=== PATIENT | female | born 1960 | race Caucasian/White ===

== ENCOUNTER 2018-01-16 15:20 | Outpatient (CLI) | payer BC | END 2018-01-16 15:21 | disposition home or self-care (01) | LOC: BICRAD 15:20 | PROVIDERS: ATTEND Chiropractor | DX: M25.561 Pain in right knee (principal); G89.29 Other chronic pain; M17.11 Unilateral primary osteoarthritis, right knee ==

== ENCOUNTER 2019-03-12 05:00 | Emergency (ER) | payer BC ==
[2019-03-12 05:45] LABS: #Basophils 0.1 thou/uL (0.0-0.2); #Eosinphils 0.2 thou/uL (0.0-0.7); #Lymphocytes 1.9 thou/uL (1.20-3.40); #Monocytes 0.7 thou/uL (0.11-0.59); #Neutrophils 6.8 thou/uL (1.40-6.50); %Eosinophils 2.3 % (0.0-10.0); %Lymphocytes 19.4 % (21.0-51.0); %Monocytes 7.6 % (0.0-10.0); %Neutrophils 69.7 % (42.0-75.0); Hemoglobin 14.7 g/dL (12.0-16.0); Mean Corpuscular HGB CONC 33.6 g/dL (32.0-36.0); Mean Corpuscular Hemoglobin 31.6 pg (27.0-31.0); Platelet Count 234 thou/uL (130-400); RBC Distribution Width 12.7 % (11.5-14.5); Red Blood Cell (RBC) Count 4.64 mill/uL (4.20-5.40); White Blood Cell (WBC) Count 9.7 thou/uL (4.8-10.8)
[2019-03-12 06:04] LABS: ALT (SGPT) 9 U/L (8-55); AST (SGOT) 12 U/L (5-34); Albumin 4.4 g/dL (3.5-5.0); Alkaline Phosphatase 93 U/L (40-150); Anion Gap 15 mmol/L (10-20); BUN (Urea Nitrogen) 7 mg/dL (9.8-20.1); Bilirubin, Total 0.7 mg/dL (0.2-1.2); Calc. Creatinine Clearance 0 mL/min (70-130); Calcium 9.9 mg/dL (7.8-10.44); Carbon Dioxide 25 mmol/L (22-29); Chloride 99 mmol/L (98-107); Estimated GFR-MDRD 65; Glucose 133 mg/dL (70-105); Potassium 3.2 mmol/L (3.5-5.1); Protein, Total 7.4 g/dL (6.0-8.3); Sodium 136 mmol/L (136-145)
[2019-03-12] MEDS ORDERED: Ondansetron PF 4 MG/2 ML Vial ONE (07:23)
[2019-03-12] MEDS ORDERED: Ketorolac Tromethamine 30 MG/ML VIAL ONE (07:23)
[2019-03-12 07:41] LABS: Bilirubin Negative (Negative); Blood, Urine Negative (Negative); Clarity CLEAR (Clear); Glucose, Urine (Dipstick) Negative (Negative); Leukocyte Small (Negative); Nitrite Negative (Negative); Protein, Urine (Dipstick) Negative (Neg-Trace); Specific Gravity, Urine 1.014 (1.002-1.036); Urobilinogen 0.2 mg/dL (0.2-1.0); pH, Urine 5.5 (5.0-9.0)
[2019-03-12 07:46] LABS: Bacteria/HPF None Seen HPF (None Seen); Hyaline Casts/LPF 4-6 HYALINE CAST LPF (0-3 Hyaline); Pathc Cast-AUWi Flag 0.81 (0-2.49); Squamous Epithelial 0-3 HPF (0-3)
--- NOTE | 2019-03-12 07:59 | CT ---
EXAM: Abdomen and pelvic CT scan without contrast: HISTORY: Pain COMPARISON: None FINDINGS: Exam is limited in sensitivity due to the absence of IV or enteric contrast. Mild atelectasis Liver: Hepatic steatosis Gallbladder: Surgically absent Pancreas: No inflammation Spleen: Unremarkable. Adrenal glands: No mass Kidneys: No renal calculus or acute obstruction. Bowel: Limited without IV or enteric contrast. There is slight inflammation of the pelvis adjacent th e sigmoid colon which contains colonic diverticula. Urinary Bladder: The urinary bladder is unremarkable. Adenopathy: No adenopathy within the abdomen or pelvis. Free Air: No free air. Ascites: No ascites. Osseous structures: No acute osseous abnormalities. IMPRESSION: Mild localized inflammation of the pelvis which is adjacent to sigmoid colon, containing diverticula. Bowel is incompletely assessed without IV or enteric contrast. Correlate for evidence of acute diverticulitis. Exam is otherwise limited by noncontrast technique.
== END 2019-03-12 08:29 | disposition home or self-care (01) ==
LOC: ERS 05:00
DX: K57.32 Diverticulitis of large intestine without perforation or abscess without bleeding (principal); I10 Essential (primary) hypertension; F32.9 Major depressive disorder, single episode, unspecified
CPT/HCPCS: 36415; 74176; 80053; 81003; 81015; 83690; 85025; 96372; 96374; J1885; J2405

== ENCOUNTER 2019-08-21 07:07 | Outpatient (CLI) | payer BC ==
[2019-08-21 11:35] LABS: #Basophils 0.1 thou/uL (0.0-0.2); #Eosinphils 0.2 thou/uL (0.0-0.7); #Lymphocytes 1.5 thou/uL (1.20-3.40); #Monocytes 0.6 thou/uL (0.11-0.59); #Neutrophils 3.4 thou/uL (1.40-6.50); %Basophils 1.3 % (0.0-1.0); %Eosinophils 3.6 % (0.0-10.0); %Lymphocytes 26.2 % (21.0-51.0); %Monocytes 9.9 % (0.0-10.0); %Neutrophils 59.1 % (42.0-75.0); Hemoglobin 13.6 g/dL (12.0-16.0); Mean Corpuscular Hemoglobin 31.9 pg (27.0-31.0); Mean Corpuscular Volume 96.7 fL (78.0-98.0); Mean Platelet Volume 7.7 fL (7.4-10.4); Platelet Count 294 thou/uL (130-400); RBC Distribution Width 12.8 % (11.5-14.5); Red Blood Cell (RBC) Count 4.25 mill/uL (4.20-5.40); White Blood Cell (WBC) Count 5.8 thou/uL (4.8-10.8)
[2019-08-21 11:41] LABS: Hemoglobin A1c 5.7 % (4.0-6.0)
[2019-08-21 12:05] LABS: Anion Gap 12 mmol/L (10-20); BUN (Urea Nitrogen) 24 mg/dL (9.8-20.1); Calc. Creatinine Clearance 0 mL/min (70-130); Calcium 10.3 mg/dL (7.8-10.44); Carbon Dioxide 30 mmol/L (22-29); Chloride 101 mmol/L (98-107); Estimated GFR-MDRD 61; Glucose 105 mg/dL (70-105); Potassium 3.3 mmol/L (3.5-5.1); Sodium 140 mmol/L (136-145)
--- NOTE | 2019-08-21 16:31 | EKG ---
Test Reason : Blood Pressure : / mmHG Vent. Rate : 082 BPM Atrial Rate : 082 BPM P-R Int : 158 ms QRS Dur : 090 ms QT Int : 382 ms P-R-T Axes : 070 058 024 degrees QTc Int : 446 ms Normal sinus rhythm Possible Inferior infarct , age undetermined Anterolateral infarct , age undetermined cannot be excluded Abnormal ECG Confirmed by ARGELIA JAMES ([id number]) on 08/21/2019 4:31:34 PM Referred By: AMARILIS Confirmed By:ARGELIA JAMES
== END 2019-08-21 07:08 | disposition home or self-care (01) ==
LOC: LABBT 07:07
PROVIDERS: ATTEND Surgery
DX: Z01.818 Encounter for other preprocedural examination (principal); K57.92 Diverticulitis of intestine, part unspecified, without perforation or abscess without bleeding
CPT/HCPCS: 80048; 83036; 85025; 93005; 93010

== ENCOUNTER 2019-08-21 09:00 | Inpatient (IN) | payer BC ==
[2019-08-28] MEDS ORDERED: Sodium Chloride 0.9% 100 ML ONE (08:32)
[2019-08-28] MEDS ORDERED: cefOXitin 2 GM VIAL ONE ×2 (08:32→12:21)
[2019-08-28] MEDS ORDERED: Midazolam HCl 2 mg/2 ml Vial ONE (08:54)
[2019-08-28] MEDS ORDERED: Fentanyl 100 MCG/2 ML VIAL ONE ×5 (08:54→14:45)
[2019-08-28] MEDS ORDERED: Dexamethasone 4 mg/ml Vial ONE (08:55)
[2019-08-28] MEDS ORDERED: Bupivacaine HCl 0.25%/Epi 0.0005/PF 10 ML VIAL FS ONE ×2 (09:50)
[2019-08-28] MEDS ORDERED: Fentanyl 250 MCG/5 ML VIAL ONE (11:35)
[2019-08-28] MEDS ORDERED: SUGAMMADEX SODIUM 200 MG/2 ML VIAL ONE (12:49)
[2019-08-28] MEDS ORDERED: Bupivacaine HCl 0.5%/Epinephrine 1:200,000/PF 30 ml Vial ONE (12:59)
[2019-08-28] MEDS ORDERED: Lidocaine 1% PF 5 ML VIAL ONE (12:59)
[2019-08-28] MEDS ORDERED: PHENYLEPHRINE-NS 100 MCG/ML 10 ML SYRINGE ONE (12:59)
[2019-08-28] MEDS ORDERED: PROPOFOL 200 MG/20 ML VIAL ONE (12:59)
[2019-08-28] MEDS ORDERED: Rocuronium Bromide 10 MG/ML (10ML VIAL) ONE (12:59)
[2019-08-28] MEDS ORDERED: Glycopyrrolate 0.2 MG/ML 5 ML SYRINGE ONE (12:59)
[2019-08-28] MEDS ORDERED: Ondansetron PF 4 MG/2 ML Vial ONE (12:59)
[2019-08-28] MEDS ORDERED: Dexamethasone 20 MG/5 ML VIAL ONE ×2 (12:59)
[2019-08-28] MEDS ORDERED: Promethazine HCl 25 MG/ML VIAL SLOW IVP PRN (13:14)
[2019-08-28] MEDS ORDERED: Morphine Sulfate 2 MG/ML SYRINGE SLOW IVP PRN (13:14)
[2019-08-28] MEDS ORDERED: Ondansetron HCl/PF 4 MG/2 ML Vial IVP PRN (13:14)
[2019-08-28] MEDS ORDERED: Ketorolac Tromethamine 30 MG/ML VIAL IVP PRN (13:14)
[2019-08-28] MEDS ORDERED: PACU-Morphine 4MG/ML VIAL SLOW IVP PRN (13:14)
[2019-08-28] MEDS ORDERED: Promethazine HCl 25 MG/ML VIAL IM PRN ×2 (13:14→13:23)
[2019-08-28] MEDS ORDERED: Meperidine HCl/PF 25 MG/ML VIAL SLOW IVP PRN (13:14)
[2019-08-28] MEDS ORDERED: HYDROmorphone 2 MG/ML VIAL SLOW IVP PRN (13:14)
[2019-08-28] MEDS ORDERED: hydrALAZINE 20 MG/ML VIAL SLOW IVP PRN (13:23)
[2019-08-28] MEDS ORDERED: Fentanyl 100 MCG/2 ML VIAL SLOW IVP PRN (13:23)
[2019-08-28] MEDS ORDERED: Dextrose 50% Abboject 50 ML SYRINGE SLOW IVP PRN (13:34)
[2019-08-28] MEDS ORDERED: Dextrose 5% in Water 1,000 ML IV PRN (13:34)
[2019-08-28] MEDS ORDERED: HumaLOG 300 UNITS/3 ML VIAL ONE (14:04)
[2019-08-28] MEDS: Fentanyl 100 MCG/2 ML VIAL SLOW IVP PRN ×3 (16:21→22:43)
[2019-08-28] MEDS: D5 1/2 NS w/20 mEq KCL 1,000 ML IV SCH (16:23)
[2019-08-28] MEDS: Acetaminophen 1,000 MG in Premix Bag 1 BAG IVPB SCH ×2 (19:07→23:36)
[2019-08-28] MEDS: Ondansetron PF 4 MG/2 ML Vial IVP PRN (19:14)
[2019-08-28] MEDS: HumaLOG 300 UNITS/3 ML VIAL SC PRN (19:21)
[2019-08-28 20:26] VITALS: BMI 34.9
[2019-08-28] MEDS: Famotidine 20 MG TAB PO SCH (21:06)
[2019-08-28] MEDS: Famotidine/PF 20 mg/2ml Vial SLOW IVP SCH (23:14)
[2019-08-29] MEDS: HumaLOG 300 UNITS/3 ML VIAL SC PRN ×2 (00:12→06:21)
[2019-08-29] MEDS: D5 1/2 NS w/20 mEq KCL 1,000 ML IV SCH (02:44)
[2019-08-29] MEDS: Fentanyl 100 MCG/2 ML VIAL SLOW IVP PRN ×7 (02:44→23:45)
[2019-08-29] MEDS: Acetaminophen 1,000 MG in Premix Bag 1 BAG IVPB SCH ×2 (05:27→11:48)
[2019-08-29 05:37] LABS: #Lymphocytes 0.8 thou/uL (1.20-3.40); #Monocytes 0.9 thou/uL (0.11-0.59); #Neutrophils 9.3 thou/uL (1.40-6.50); %Basophils 0.1 % (0.0-1.0); %Eosinophils 0.1 % (0.0-10.0); %Lymphocytes 7.1 % (21.0-51.0); %Monocytes 8.4 % (0.0-10.0); %Neutrophils 84.3 % (42.0-75.0); Hemoglobin 11.5 g/dL (12.0-16.0); Mean Corpuscular HGB CONC 33.6 g/dL (32.0-36.0); Mean Corpuscular Hemoglobin 32.1 pg (27.0-31.0); Mean Corpuscular Volume 95.6 fL (78.0-98.0); Platelet Count 200 thou/uL (130-400); RBC Distribution Width 12.6 % (11.5-14.5); Red Blood Cell (RBC) Count 3.59 mill/uL (4.20-5.40); White Blood Cell (WBC) Count 11.1 thou/uL (4.8-10.8)
[2019-08-29 05:53] LABS: Anion Gap 13 mmol/L (10-20); BUN (Urea Nitrogen) 8 mg/dL (9.8-20.1); Calc. Creatinine Clearance 114 mL/min (70-130); Calcium 8.9 mg/dL (7.8-10.44); Carbon Dioxide 27 mmol/L (22-29); Chloride 100 mmol/L (98-107); Estimated GFR-MDRD 74; Glucose 151 mg/dL (70-105); Sodium 136 mmol/L (136-145)
--- NOTE | 2019-08-29 07:00 | PDOC.GSPN ---
Surgery Progress Note: Subj - Subjective Patient reports: pain is less Narrative: Ms. Paul is a 58 year old female with a history of chronic diverticulitis who is POD 1 from sigmoid colectomy. She is doing okay this morning, reporting that she struggled with pain overnight. She currently rates pain 5-6/10 after having received pain medicine this morning. She describes the pain as soreness that worses with cough and fullness. She reports mild nausea and has not yet passed flatus or bowel movement yet. She has ambulated x1 without issues and is tolerating clears well. Thomas was removed this morning, however she has not urinated since removal. Patient denies chest pain, dyspnea, dizziness, vomiting, and reflux. Surgery Progress Note: Obj - Vital signs Vital signs: Vital Signs - Most Recent Temp Pulse Resp BP Pulse Ox 97.9 F 88 16 112/74 92 L 08/29/19 03:07 08/29/19 03:07 08/29/19 03:07 08/29/19 05:22 08/29/19 03:07 - Physical Exam General: no distress, well developed ENT: normal mucosa Neck: no lymphadectomy, no masses Cardiovascular: regular rate and rhythm, no murmur Respiratory: clear to auscultation, normal expansion, normal respiratory effort , breath sounds present Abdomen: soft, nondistended, appropriately tender, other (Very reduced bowel sounds.) Psychiatric: oriented to time, oriented to person, oriented to place Wound: dressing clean,dry,intact, healing well (Mild bruising around incisions. However, no erythema, bleeding, or purulent discharge.) Surgery Progress Note: Results - Labs Result Diagrams: 08/29/19 04:58 08/29/19 04:58 Lab results: Laboratory Results - last 24 hr 08/28/19 08/28/19 08/29/19 19:23 23:17 04:58 WBC RBC Hgb Hct MCV MCH MCHC RDW Plt Count MPV Neutrophils % Lymphocytes % Monocytes % Eosinophils % Basophils % Neutrophils # Lymphocytes # Monocytes # Eosinophils # Basophils # Sodium 136 Potassium 4.0 Chloride 100 Carbon Dioxide 27 Anion Gap 13 BUN 8 L Creatinine 0.79 Estimated GFR (MDRD) 74 Glucose 151 H POC Glucose 264 H 201 H Calcium 8.9 08/29/19 08/29/19 04:58 05:06 WBC 11.1 H RBC 3.59 L Hgb 11.5 L Hct 34.3 L MCV 95.6 MCH 32.1 H MCHC 33.6 RDW 12.6 Plt Count 200 MPV 8.0 Neutrophils % 84.3 H Lymphocytes % 7.1 L Monocytes % 8.4 Eosinophils % 0.1 Basophils % 0.1 Neutrophils # 9.3 H Lymphocytes # 0.8 L Monocytes # 0.9 H Eosinophils # 0.0 Basophils # 0.0 Sodium Potassium Chloride Carbon Dioxide Anion Gap BUN Creatinine Estimated GFR (MDRD) Glucose POC Glucose 155 H Calcium Surgery Progress Note: A/P - Plan Plan: Ms. Paul is a 58 year old female with a history of chronic diverticulitis who is POD 1 from sigmoid colectomy. -May advance diet to full liquids as tolerated -Monitor pain -Glucose checks -Monitor for bowel movement and flatus -Ensure urinating okay after thomas removal -Continue to encourage ambulation and walking HTN -On Lisinopril-HCTZ PO Addendum - Physician - Physician Attestation Date/Time: 08/29/19 1020 I personally performed or re-performed the physical examination and medical decision making. I have verified all student documentation or findings, including history, physical exam and/or medical decision making. Doing well. Fulls tonight if doing well. change to oral pain control
[2019-08-29] MEDS ORDERED: HYDROCHLOROTHIAZIDE PO SCH (09:00)
[2019-08-29] MEDS ORDERED: [UNRECOGNIZED DRUG - OTHER] PO SCH (09:00)
[2019-08-29] MEDS: Famotidine 20 MG TAB PO SCH ×2 (09:00→20:16)
[2019-08-29] MEDS ORDERED: Lisinopril/Hydrochlorothiazide 10 mg/12.5 mg Tablet PO SCH (09:00)
[2019-08-29] MEDS ORDERED: BENAZEPRIL PO SCH (09:00)
[2019-08-29] MEDS: Famotidine/PF 20 mg/2ml Vial SLOW IVP SCH ×2 (09:02→23:02)
[2019-08-29] MEDS ORDERED: D5 1/2 NS w/20 mEq KCL 1,000 ML IV SCH (10:20)
[2019-08-29] MEDS: Lisinopril/Hydrochlorothiazide 20/25 mg Tablet PO SCH (11:45)
[2019-08-29] MEDS: HYDROcodone/Acetaminophen 7.5/325 mg Tablet PO PRN ×2 (11:58→18:49)
[2019-08-29] MEDS: Ondansetron PF 4 MG/2 ML Vial IVP PRN (11:58)
[2019-08-30] MEDS: HYDROcodone/Acetaminophen 7.5/325 mg Tablet PO PRN ×4 (01:01→20:36)
[2019-08-30] MEDS: Fentanyl 100 MCG/2 ML VIAL SLOW IVP PRN (03:52)
--- NOTE | 2019-08-30 06:54 | PDOC.GSPN ---
Surgery Progress Note: Subj - Subjective Patient reports: pain is less Narrative: Ms. Paul is a 58 year old female with a history of chronic diverticulitis who is POD 2 from sigmoid colectomy. She reports moderate pain yesterday and overnight that has improved with Narco and Fentanyl. She rates her pain currently 5/10 with slight RUQ discomfort and nausea. She is ambulating well in the hallway and took a shower yesterday. She is tolerating full liquids well, however has not had a bowel movement or passed flatus yet. She mentions wanting to stay one more day in the hospital for reassurance. Patient denies dizziness, vomiting, reflux, changes in urination, or new bleeding. Surgery Progress Note: Obj - Vital signs Vital signs: Vital Signs - Most Recent Temp Pulse Resp BP Pulse Ox 98.9 F 91 16 109/70 95 08/30/19 03:23 08/30/19 03:23 08/30/19 03:23 08/30/19 03:23 08/30/19 03:23 - Physical Exam General: no distress Neck: no lymphadectomy, no masses Cardiovascular: regular rate and rhythm, no murmur, other (Pedal pulses 2+ bilaterally. Trace edema in ankles.) Respiratory: clear to auscultation, normal expansion, normal respiratory effort , breath sounds present Abdomen: soft, nondistended, positive bowel sounds (Very soft and dull), appropriately tender Integumentary: no rash Psychiatric: oriented to time, oriented to person, oriented to place Wound: dressing clean,dry,intact, healing well (Mild bruising around incision. No bleeding, erythema, or purulent drainage of the wound.) Surgery Progress Note: Results - Labs Result Diagrams: 08/29/19 04:58 08/29/19 04:58 Lab results: Laboratory Results - last 24 hr 08/29/19 08/30/19 23:39 05:56 POC Glucose 139 H 115 H Surgery Progress Note: A/P - Plan Plan: Ms. Paul is a 58 year old female with a history of chronic diverticulitis who is POD 2 from sigmoid colectomy. -May advance diet to soft foods later today as tolerated -Monitor for bowel movement and flatus. May consider stool softener if desired. -Continue to encourage ambulation -Glucose checks -Plan to d/c tomorrow if no further issues HTN -On Lisinopril-HCTZ PO Addendum - Physician - Physician Attestation Date/Time: 08/30/19 1001 I personally performed or re-performed the physical examination and medical decision making. I have verified all student documentation or findings, including history, physical exam and/or medical decision making.
[2019-08-30] MEDS: Lisinopril/Hydrochlorothiazide 20/25 mg Tablet PO SCH (08:19)
[2019-08-30] MEDS: Famotidine 20 MG TAB PO SCH ×2 (08:20→20:36)
[2019-08-30] MEDS: Famotidine/PF 20 mg/2ml Vial SLOW IVP SCH ×2 (08:20→20:38)
--- NOTE | 2019-08-30 10:14 | PRG ---
DATE OF SERVICE: 08/30/2019 SUBJECTIVE: Postop day #2 colectomy. Ms. Paul is doing well. She is tolerating the liquid diet without difficulty. She has not had a bowel movement. OBJECTIVE: VITAL SIGNS: On exam, she is afebrile. Vital signs are stable. ABDOMEN: Soft. Her wound is healing well. ASSESSMENT: Postop sigmoid colectomy. PLAN: Encouraged ambulation. I suspect she will be ready for discharge tomorrow. Job ID: [id number]
[2019-08-31] MEDS: HYDROcodone/Acetaminophen 7.5/325 mg Tablet PO PRN ×3 (00:53→12:53)
--- NOTE | 2019-08-31 07:12 | PDOC.GSPN ---
Surgery Progress Note: Subj - Subjective Narrative: Ms. Paul is a 58 year old female with a history of chronic diverticulitis who is POD 3 from sigmoid colectomy. She is doing well this morning with moderate abdominal pain. She rates the pain 3/10 after receiving Narco and still mentions RUQ soreness. She has been ambulating and tolerating full liquids very well. She reports having 2 bowel movements yesterday and positive flatus. Patient denies dizziness, fevers, chills, nausea, vomiting, changes in urination , and blood in stools. Surgery Progress Note: Obj - Vital signs Vital signs: Vital Signs - Most Recent Temp Pulse Resp BP Pulse Ox 98.7 F 91 16 90/59 L 96 08/31/19 03:55 08/31/19 03:55 08/31/19 03:55 08/31/19 03:55 08/31/19 06:55 - Physical Exam General: moderate pain Neck: no lymphadectomy, no masses Cardiovascular: regular rate and rhythm, no murmur Respiratory: clear to auscultation, normal expansion, normal respiratory effort , breath sounds present Abdomen: soft, non tender, nondistended, positive bowel sounds Integumentary: no rash Psychiatric: oriented to time, oriented to person, oriented to place Wound: dressing clean,dry,intact, healing well (Bruising bordering invisions are evolving. No erythema, bleeding, or purulent discharge.) Surgery Progress Note: Results - Labs Result Diagrams: 08/29/19 04:58 08/29/19 04:58 Lab results: Laboratory Results - last 24 hr 08/31/19 08/31/19 00:11 05:59 POC Glucose 120 H 114 H Surgery Progress Note: A/P - Plan Plan: Ms. Paul is a 58 year old female with a history of chronic diverticulitis who is POD 3 from sigmoid colectomy. -May advance diet to soft foods today -Continue to encourage ambulation -Glucose checks -Blood pressure checks as BP appeared low this AM -Plan to d/c today if no further issues -Follow up in 1-2 weeks in the clinic HTN -On Lisinopril-HCTZ PO
[2019-08-31] MEDS: Famotidine/PF 20 mg/2ml Vial SLOW IVP SCH (09:26)
[2019-08-31] MEDS: Famotidine 20 MG TAB PO SCH (09:26)
[2019-08-31] MEDS: Lisinopril/Hydrochlorothiazide 20/25 mg Tablet PO SCH (09:26)
--- NOTE | 2019-08-31 09:39 | DIS ---
DATE OF ADMISSION: 08/28/2019 DATE OF DISCHARGE: 08/31/2019 ADMIT DIAGNOSIS: Chronic diverticulitis. PROCEDURES: Open sigmoid resection with anastomosis by Dr. Knight without complication. CONDITION ON DISCHARGE: Improved. STAFF: Eben Knight MD HOSPITAL COURSE: On postop day 3, the patient is doing well. She is tolerating full liquids. She is ambulatory. Her pain is minimal. She is discharged home on [place] and Zofran. She will follow up with me in the office in 2 weeks. Job ID: [id number]
[2019-08-31 12:15] VITALS: BP 95/62; TEMP 98.8
--- NOTE | 2019-09-03 12:49 | OP ---
DATE OF PROCEDURE: 08/28/2019 PREOPERATIVE DIAGNOSIS: Chronic sigmoid diverticulitis. POSTOPERATIVE DIAGNOSIS: Chronic sigmoid diverticulitis. PROCEDURES PERFORMED: Sigmoid colectomy with laparoscopic converted open sigmoid colectomy, mobilization of splenic flexure. ANESTHESIA: General. ESTIMATED BLOOD LOSS: Minimal. COMPLICATIONS: None. SPECIMEN: Sigmoid colon. DESCRIPTION OF PROCEDURE: The patient was taken to the operating room and placed supine on the table. After general anesthetic was obtained, a Rivera was placed. The patient was placed in lithotomy position. The patient was prepped and draped in a sterile fashion. A left subcostal 5 mm Optiview trocar was placed in the usual fashion. High-flow pneumoperitoneum was obtained. The patient had significant intraabdominal adhesions. Decision was made to open. Midline incision was made from pubis and up and around the umbilicus. Bookwalter retractor was placed. The left colon was mobilized on the left along the white line of Toldt. The left ureter was found and excluded from the dissection. There was significant inflammatory chronic changes in the pelvis. The SALENA was taken at its base. The dissection was taken down through the sigmoid colon mesentery medial to lateral. Again, the ureter was found and excluded from the dissection. The sigmoid colon was bluntly dissected off the left pelvic sidewall past the sigmoid colon in the upper rectum. A mobilization was performed and the contour stapler was used to fired across the rectosigmoid junction. The location was found above for transection just above the sigmoid colon and the descending colon. The splenic flexure was mobilized in the usual fashion to allow a tension-free anastomosis. The LigaSure was used to finalize the mesenteric resection to remove the area of the sigmoid colon, which was sent to Path for final diagnosis. The 31 EEA was passed in the end of the above staple line and out on the antimesenteric surface of the colon proximal. An additional stapler was fired just distal to this. The descending colon was able to brought down into the pelvis under no tension. The base of the EEA was brought up through the anus on the antimesenteric surface of the rectum below connected to the anvil from above. The stapler was tightened down to the green zone and fired. There were two good rings of tissue. The anastomosis was tested by air insufflation under saline without evidence of leakage. All instrument counts, needle counts, and lap counts were correct. There was no bleeding in the abdomen. Seprafilm was placed in the abdomen. The fascia was closed using PDS from the top and bottom, and tied in the middle. Subcutaneous tissues were irrigated. The skin was closed using 3-0 Vicryl, 4-0 Monocryl, and Dermabond. The patient was sent to Recovery in stable condition. All instrument counts, needle counts, and lap counts were correct. Job ID: [id number]
== END 2019-08-31 13:24 | disposition home or self-care (01) | DRG 331 ==
LOC: SURG A 08-28 07:46
PROVIDERS: ADMIT Surgery; ATTEND Surgery
PROC: 0DBN4ZZ Excision of Sigmoid Colon, Percutaneous Endoscopic Approach (ICD-10-PCS; principal; 2019-08-28)
DX: K57.92 Diverticulitis of intestine, part unspecified, without perforation or abscess without bleeding (principal); F32.9 Major depressive disorder, single episode, unspecified; I10 Essential (primary) hypertension; Z90.49 Acquired absence of other specified parts of digestive tract; Z88.8 Allergy status to other drugs, medicaments and biological substances; Z90.89 Acquired absence of other organs; Z90.710 Acquired absence of both cervix and uterus; R11.0 Nausea
CPT/HCPCS: 36415; 36416; 80048; 85025; 88307; J0131; J0670; J0694; J1100; J2001; J2250; J2405; J2704; J3010; J3490

== ENCOUNTER 2020-04-06 21:45 | Emergency (ER) | payer BC, OTHER ==
[2020-04-07 14:56] LABS: SARS-CoV-2 MS2 Positive; SARS-CoV-2 N Gene Negative; SARS-CoV-2 S Gene Negative; SARS-CoV-2 orf1ab Negative
== END 2020-04-06 22:30 | disposition home or self-care (01) ==
LOC: ERS 21:45
DX: R51 Headache (principal); M79.10 Myalgia, unspecified site; Z20.828 Contact with and (suspected) exposure to other viral communicable diseases; I10 Essential (primary) hypertension; F32.9 Major depressive disorder, single episode, unspecified; Z79.899 Other long term (current) drug therapy
CPT/HCPCS: 87635; 99283; U0003

== ENCOUNTER 2020-07-10 06:20 | Emergency (ER) | payer BC ==
[2020-07-10] MEDS ORDERED: Ondansetron PF 4 MG/2 ML Vial ONE (06:40)
[2020-07-10] MEDS ORDERED: Morphine 4 MG/ML VIAL ONE (06:40)
[2020-07-10 07:00] LABS: #Basophils 0.1 thou/uL (0.0-0.2); #Eosinphils 0.3 thou/uL (0.0-0.7); #Monocytes 0.6 thou/uL (0.11-0.59); #Neutrophils 4.7 thou/uL (1.40-6.50); %Basophils 1.3 % (0.0-1.0); %Lymphocytes 25.7 % (21.0-51.0); %Neutrophils 61.1 % (42.0-75.0); Hemoglobin 13.6 g/dL (12.0-16.0); Mean Corpuscular HGB CONC 33.2 g/dL (32.0-36.0); Mean Corpuscular Hemoglobin 31.1 pg (27.0-31.0); Mean Corpuscular Volume 93.5 fL (78.0-98.0); Mean Platelet Volume 8.3 fL (7.4-10.4); Platelet Count 175 thou/uL (130-400); RBC Distribution Width 13.1 % (11.5-14.5); Red Blood Cell (RBC) Count 4.39 mill/uL (4.20-5.40); White Blood Cell (WBC) Count 7.6 thou/uL (4.8-10.8)
[2020-07-10 07:16] LABS: Bilirubin Negative (Negative); Blood, Urine Trace (Negative); Clarity Clear (Clear); Glucose, Urine (Dipstick) Normal (Negative); Ketone, Urine Negative (Negative); Leukocyte 75 Leu/uL (Negative); Nitrite Negative (Negative); Protein, Urine (Dipstick) Negative (Neg-Trace); Specific Gravity, Urine 1.018 (1.002-1.036); Squamous Epithelial 0-3 HPF (0-3); Urobilinogen Normal mg/dL (Less than 2); WBC/HPF 0-3 HPF (0-3)
[2020-07-10 07:17] LABS: Bacteria/HPF 1+ HPF (None Seen)
[2020-07-10 07:39] LABS: ALT (SGPT) 13 U/L (8-55); AST (SGOT) 16 U/L (5-34); Albumin 4.1 g/dL (3.4-4.8); Alkaline Phosphatase 98 U/L (40-110); Anion Gap 14 mmol/L (10-20); BUN (Urea Nitrogen) 20 mg/dL (9.8-20.1); Bilirubin, Total 0.4 mg/dL (0.2-1.2); Calc. Creatinine Clearance 0 mL/min (70-130); Calcium 10.1 mg/dL (7.8-10.44); Carbon Dioxide 28 mmol/L (23-31); Chloride 97 mmol/L (98-107); Estimated GFR-MDRD 58; Globulin 2.9 g/dL (2.4-3.5); Glucose 123 mg/dL (80-115); Lipase 17 U/L (8-78); Potassium 3.2 mmol/L (3.5-5.1); Sodium 136 mmol/L (136-145)
--- NOTE | 2020-07-10 08:19 | CT ---
EXAM: CT ABDOMEN AND PELVIS HISTORY: Abdominal pain. COMPARISON: 04/21/2020 Procedure: Multiple contiguous axial images were obtained and a CT of the abdomen and pelvis with IV contrast. C oronal reformats were performed. FINDINGS: Lower Chest: Dependent atelectatic changes Vessels: Normal caliber aorta. Heart: Normal heart Abdomen: Portal vein:Patent Gallbladder: Surgically absent Liver: within normal limits. Pancreas: within normal limits. Spleen: within normal limits. Adrenals: within normal limits. Kidneys: Symmetric enhancement. No obstructive uropathy. Peritoneum: No ascites or free air, no fluid collection. Bowel: Limited evaluation due to the lack of oral contrast administration. No evidence of bowel obstr uction. Ileocecal junction is unremarkable. Appendix is not appreciated. No obvious inflammatory changes cecal apex. Scattered fecal material in a nondistended, nondilated colon. An anastomotic sutu re chain is noted in the region of the sigmoid colon. Mesentery and Retroperitoneum: No enlarged mesenteric or retroperitoneal lymph nodes. Abdominal Wall: Ventral abdominal hernia containing mesenteric fat. No evidence of bowel herniation. The hernia defect measures 6.2 cm. Nonspecific edema and stranding involving a panniculus. No evidence of an abscess. Pelvis: Reproductive Organs: Uterus is surgically absent. Pelvis: No mass, lymphadenopathy, free air or free fluid. Bladder: Normal bladder mucosa. No mucosal abnormality. Bones: Bilateral transpedicular screws at L5 and S1. No perihardware lucency. Fusion at the L5-S1 dis c space is noted. Bony pelvis and visualized ribs do not demonstrate any acute abnormality. IMPRESSION: 1. Stable ventral abdominal hernias containing mesenteric fat.
== END 2020-07-10 09:35 | disposition home or self-care (01) ==
LOC: ERS 06:20
DX: N30.00 Acute cystitis without hematuria (principal); R11.2 Nausea with vomiting, unspecified; I10 Essential (primary) hypertension; F32.9 Major depressive disorder, single episode, unspecified; Z79.899 Other long term (current) drug therapy
CPT/HCPCS: 74177; 80053; 81003; 81015; 83690; 85025; 93005; 96374; 96375; J2270; J2405

== ENCOUNTER 2020-10-14 03:41 | Emergency (ER) | payer BC ==
[2020-10-14] MEDS ORDERED: Ondansetron PF 4 MG/2 ML Vial ONE (04:01)
[2020-10-14] MEDS ORDERED: Morphine 4 MG/ML VIAL ONE (04:01)
[2020-10-14 04:25] LABS: #Basophils 0.1 thou/uL (0.0-0.2); #Eosinphils 0.1 thou/uL (0.0-0.7); #Lymphocytes 1.4 thou/uL (1.20-3.40); #Monocytes 0.8 thou/uL (0.11-0.59); #Neutrophils 10.1 thou/uL (1.40-6.50); %Lymphocytes 10.9 % (21.0-51.0); %Monocytes 6.1 % (0.0-10.0); Mean Corpuscular HGB CONC 31.7 g/dL (32.0-36.0); Mean Corpuscular Hemoglobin 29.6 pg (27.0-31.0); Mean Corpuscular Volume 93.4 fL (78.0-98.0); Mean Platelet Volume 8.1 fL (7.4-10.4); Platelet Count 215 thou/uL (130-400); RBC Distribution Width 13.3 % (11.5-14.5); Red Blood Cell (RBC) Count 5.42 mill/uL (4.20-5.40); White Blood Cell (WBC) Count 12.5 thou/uL (4.8-10.8)
[2020-10-14 04:49] LABS: ALT (SGPT) 12 U/L (8-55); AST (SGOT) 13 U/L (5-34); Albumin 4.2 g/dL (3.4-4.8); Alkaline Phosphatase 86 U/L (40-110); Anion Gap 15 mmol/L (10-20); BUN (Urea Nitrogen) 21 mg/dL (9.8-20.1); Bilirubin, Total 0.6 mg/dL (0.2-1.2); Calc. Creatinine Clearance 0 mL/min (70-130); Calcium 9.5 mg/dL (7.8-10.44); Carbon Dioxide 31 mmol/L (23-31); Chloride 95 mmol/L (98-107); Globulin 2.9 g/dL (2.4-3.5); Glucose 188 mg/dL (80-115); Lipase 15 U/L (8-78); Potassium 3.6 mmol/L (3.5-5.1); Protein, Total 7.1 g/dL (6.0-8.3); Sodium 137 mmol/L (136-145)
--- NOTE | 2020-10-14 07:49 | CT ---
PRELIMINARY REPORT/[facility]/EMERGENCY AFTER HOURS PROCEDURE EXAM: CT Abdomen and Pelvis with Intravenous Contrast CLINICAL HISTORY: 60-year-old female with multiple episodes of vomiting and some diarrhea today. She notes she had abdo thiago pain that was abrupt in onset that occurred at 8 PM and she does have a history of multiple abdominal surgeries as well as diverticulitis. She notes that she had no fever no chills no prodromal symptoms just developed acute onset abdominal pain and vomiting this evening. She denies a history of prior small bowel obstructions but notes she has had an appendectomy as well. TECHNIQUE: Axial computed tomography images of the abdomen and pelvis with intravenous contrast. CONTRAST: With; 70ML ISOVUE 370 COMPARISON: None provided. FINDINGS: LUNG BASES: No basilar airspace consolidation or pleural effusion. LIVER: Trace perihepatic free fluid. GALLBLADDER AND BILE DUCTS: Status post cholecystectomy. The common duct is dilated measuring up to 9 mm is mild central intrahepatic biliary ductal dilatatio n which may be seen in the setting status post cholecystectomy. PANCREAS: Unremarkable. SPLEEN: Unremarkable. ADRENAL GLANDS: Unremarkable. KIDNEYS, URETERS, AND BLADDER: Unremarkable. No hydronephrosis or nephrolithiasis. No ureteral or bladder calculi. STOMACH AND BOWEL: Status post distal colonic anastomosis. There is marked mural thickening of multiple loops of mid to distal small bowel with pericolonic infl ammatory changes and fluid in the adjacent mesentery compatible with enteritis. There is a small amount of free fluid adjacent to the loops of bowel. There is mild mural thickening of the colon invo lving the ascending, transverse and proximal colon which may be seen in the setting of colitis. APPENDIX: No CT evidence for appendicitis. PERITONEUM: No free fluid. No free air. LYMPH NODES: No lymphadenopathy. REPRODUCTIVE: Unremarkable as visualized. VASCULATURE: No aortic aneurysm. BONES: Status post surgical fixation at L5/S1. ABDOMINAL WALL AND SOFT TISSUES: Two supraumbilical fat-containing ventral hernias and a fat and fluid infraumbilical ventral hernia. IMPRESSION: Status post distal colonic anastomosis. There is marked mural thickening of multiple loops of mid to distal small bowel with pericolonic infl ammatory changes and fluid in the adjacent mesentery compatible with enteritis. Mild mural thickening of the colon involving the ascending, transverse and proximal colon which may be seen in the setting of colitis. ELECTRONICALLY SIGNED BY: Kimberly Rousseau MD Oct 14, 2020 5:24:04 AM POLICE WORKER This report is intended for review by the ordering physician only, in accordance of law. If you recei ve this report in error, please call [facility] at [phone]. FINAL REPORT Final interpretation CT of the abdomen and pelvis: 10/14/2020 COMPARISON: 07/10/2020. HISTORY: Diarrhea and vomiting. TECHNIQUE: Axial CT imaging at 5 mm intervals from lung bases through pubic symphysis with intravenou s contrast. Coronal and sagittal reformatted imaging obtained. FINDINGS: I agree with the preliminary report. The visualized lung bases demonstrate mild increased l inear density, likely on the basis of volume loss. There is no free intraperitoneal air noted. The gallbladder is surgically absent. There is new small volume free fluid adjacent to the right lobe of the liver. No focal liver lesion i s seen. The spleen, pancreas, adrenal glands, and kidneys demonstrate no acute findings. Evaluation of the bowel is limited without oral contrast media. A distal colonic suture line is again noted. New free fluid is noted within the inferior aspect of the pelvis. Complex multifocal fat-containing ventral hernia again noted. There has been interval development of multiple loops of a bnormal small bowel within the mid abdomen anteriorly and inferiorly extending into the pelvis which demonstrate prominent abnormal small bowel wall thickening. No evidence for intra-abdominal abs cess is seen. The vascular structures of the abdomen/pelvis appear patent. Portal vein, splenic vein, and superior mesenteric vein appear patent. The celiac axis, superior mesenteric artery, and inferior mesenteric artery appear patent. No abdominal or pelvic lymphadenopathy is seen. Posterior fusion hardware noted at the lumbosacral junction. No acute osseous abnormality. IMPRESSION: Interval development of multiple markedly abnormal thick-walled loops of small bowel with abnormal associated free fluid suggesting a nonspecific enteritis which could be associated with ischemia, infection, or inflammatory processes. Recommend follow-up imaging following treatment to do cument resolution Code QA Transcribed Date/Time: 10/14/2020 8:52 AM
[2020-10-14 09:51] LABS: SARS-CoV-2 MS2 Positive; SARS-CoV-2 N Gene Negative; SARS-CoV-2 S Gene Negative; SARS-CoV-2 by NAA Not Detected (NotDetected); SARS-CoV-2 orf1ab Negative
[2020-10-14 11:15] LABS: Bacteria/HPF None Seen HPF (None Seen); Bilirubin Negative (Negative); Blood, Urine Negative (Negative); Clarity Clear (Clear); Glucose, Urine (Dipstick) Normal (Negative); Ketone, Urine Negative (Negative); Leukocyte 250 Leu/uL (Negative); Nitrite Negative (Negative); Protein, Urine (Dipstick) Negative (Neg-Trace); RBC/HPF 0-3 HPF (0-3); Squamous Epithelial 0-3 HPF (0-3); Urobilinogen Normal mg/dL (Less than 2); WBC/HPF 0-3 HPF (0-3)
[2020-10-14 11:19] LABS: Specific Gravity, Urine 1.061 (1.002-1.036)
[2020-10-14] MEDS ORDERED: Iopamidol-370 76% 500 ML 1 ML ONE (13:22)
== END 2020-10-14 06:25 | disposition home or self-care (01) ==
LOC: ERS 03:41
DX: K52.9 Noninfective gastroenteritis and colitis, unspecified (principal); Z20.828 Contact with and (suspected) exposure to other viral communicable diseases; I10 Essential (primary) hypertension
CPT/HCPCS: 36415; 74177; 80053; 81003; 81015; 83690; 85025; 87040; 87635; 94760; 96374; J2270; J2405; Q9967; U0003

== ENCOUNTER 2021-02-06 13:14 | Emergency (ER) | payer BC ==
[2021-02-06] MEDS ORDERED: Morphine 4 MG/ML VIAL ONE (15:10)
[2021-02-06] MEDS ORDERED: Ketorolac Tromethamine 30 MG/ML VIAL ONE (15:10)
[2021-02-06] MEDS ORDERED: Ondansetron PF 4 MG/2 ML Vial ONE (15:10)
== END 2021-02-06 16:50 | disposition home or self-care (01) ==
LOC: ERS 13:14
DX: M54.2 Cervicalgia (principal); M54.5 Low back pain; I10 Essential (primary) hypertension; W18.2XXA Fall in (into) shower or empty bathtub, initial encounter
CPT/HCPCS: 70450; 72125; 72128; 72131; 96374; 96375; J1885; J2270; J2405

== ENCOUNTER 2021-03-13 10:11 | Outpatient (CLI) | payer BC ==
[2021-03-13 11:24] LABS: #Basophils 0.1 10x3/uL (0.0-0.2); #Eosinphils 0.7 10x3/uL (0.0-0.5); #Monocytes 0.6 10x3/uL (0.0-1.1); #Neutrophils 2.5 10x3/uL (1.5-8.4); %Basophils 1.1 % (0.0-2.0); %Eosinophils 12.3 % (0.0-6.0); %Lymphocytes 31.2 % (18.0-47.0); %Monocytes 10.3 % (0.0-10.0); %Neutrophils 44.9 % (40.0-75.0); Hemoglobin 13.8 g/dL (12.0-15.5); Mean Corpuscular HGB CONC 32.4 g/dL (32.0-36.0); Mean Corpuscular Hemoglobin 29.9 pg (27.0-33.0); Mean Corpuscular Volume 92.4 fl (81.6-98.3); Mean Platelet Volume 10.6 fl (7.4-10.4); Platelet Count 188 10x3/uL (150-450); RBC Distribution Width 13.5 % (11.5-14.5); Red Blood Cell (RBC) Count 4.61 10x6/uL (3.90-5.03); White Blood Cell (WBC) Count 5.6 10x3/uL (3.5-10.5)
[2021-03-13 11:45] LABS: Anion Gap 15 mmol/L (10-20); BUN (Urea Nitrogen) 22 mg/dL (9.8-20.1); Calc. Creatinine Clearance 0 mL/min (70-130); Calcium 9.5 mg/dL (7.8-10.44); Carbon Dioxide 28 mmol/L (23-31); Chloride 102 mmol/L (98-107); Glucose 118 mg/dL (80-115); Potassium 4.1 mmol/L (3.5-5.1); Sodium 141 mmol/L (136-145)
[2021-03-13 17:57] LABS: SARS-CoV-2 PCR by NAA Not Detected (NotDetected)
== END 2021-03-13 10:12 | disposition home or self-care (01) ==
LOC: LABBT 10:11
PROVIDERS: ATTEND Surgery
DX: Z01.818 Encounter for other preprocedural examination (principal); K43.2 Incisional hernia without obstruction or gangrene; Z20.822 Contact with and (suspected) exposure to COVID-19
CPT/HCPCS: 80048; 85025; 87635; 93005; 93010; U0003; U0005

== ENCOUNTER 2021-03-18 09:53 | Day surgery (SDC) | payer BC ==
[2021-03-16 14:48] VITALS: BMI 34.9
[2021-03-18] MEDS ORDERED: Lidocaine 1% w/Epinephrine 1:100K 20 ML VIAL ONE (11:24)
[2021-03-18] MEDS ORDERED: Bupivacaine 0.25% HCL 30 ML VIAL ONE (11:24)
[2021-03-18] MEDS ORDERED: Levofloxacin 500 mg/D5W 100 ml Premix Bag ONE (11:44)
[2021-03-18] MEDS ORDERED: Fentanyl 100 MCG/2 ML VIAL ONE ×3 (11:57→14:59)
[2021-03-18] MEDS ORDERED: Dexmedetomidine 200 MCG/2 ML VIAL ONE (11:57)
[2021-03-18] MEDS ORDERED: Lidocaine 1% PF 5 ML VIAL ONE (12:10)
[2021-03-18] MEDS ORDERED: Dexamethasone 20 MG/5 ML VIAL ONE (12:10)
[2021-03-18] MEDS ORDERED: PROPOFOL 200 MG/20 ML VIAL ONE (12:10)
[2021-03-18] MEDS ORDERED: Ondansetron PF 4 MG/2 ML Vial ONE (12:10)
[2021-03-18] MEDS ORDERED: Rocuronium Bromide 10 MG/ML (10ML VIAL) ONE (12:10)
[2021-03-18] MEDS ORDERED: SUGAMMADEX SODIUM 500 MG/5 ML VIAL ONE (14:09)
[2021-03-18] MEDS ORDERED: Ketorolac Tromethamine 30 MG/ML VIAL ONE (15:26)
== END 2021-03-18 17:40 | disposition home or self-care (01) ==
LOC: SDC 09:53
PROVIDERS: ATTEND Surgery
PROC: 0WUF4JZ Supplement Abdominal Wall with Synthetic Substitute, Percutaneous Endoscopic Approach (ICD-10-PCS; principal; 2021-03-18)
DX: K43.2 Incisional hernia without obstruction or gangrene (principal); I10 Essential (primary) hypertension; Z79.899 Other long term (current) drug therapy; Z88.1 Allergy status to other antibiotic agents; Z88.6 Allergy status to analgesic agent; Z88.8 Allergy status to other drugs, medicaments and biological substances
CPT/HCPCS: J1100; J1885; J1956; J2405; J2704; J3010; S0020